=== PATIENT | female | born 1960 | race American Indian/Alaskan Native ===

== ENCOUNTER 2017-09-24 09:43 | Emergency (ER) | payer MEDICARE ==
[2017-09-24] MEDS ORDERED: NACL 0.9% 1000 ML 1,000 ML IV ONE (10:02)
[2017-09-24 10:41] LABS: Basophils % (Auto) 0.6 % (0.0-1.8); Eosinophils # (Auto) 0.1 K/mm3 (0.0-0.4); Eosinophils % (Auto) 2.1 % (0.0-4.3); Hematocrit 44.5 % (30.3-42.9); Hemoglobin 14.8 gm/dl (10.1-14.3); Lymphocytes # (Auto) 1.9 K/mm3 (1.2-5.4); Lymphocytes % (Auto) 40.8 % (13.4-35.0); Mean Corpuscular HGB Conc 33 % (30-34); Mean Corpuscular Hemoglobin 30 pg (28-32); Mean Corpuscular Volume 91 fl (79-97); Monocytes # (Auto) 0.3 K/mm3 (0.0-0.8); Monocytes % (Auto) 6.4 % (0.0-7.3); Platelet Count 289 K/mm3 (140-440); Red Blood Count 4.87 M/mm3 (3.65-5.03); Red Cell Distribution Width 13.5 % (13.2-15.2)
[2017-09-24 10:53] LABS: Alanine Aminotransferase 20 units/L (7-56); Albumin 4.1 g/dL (3.9-5); BUN/Creatinine Ratio 14; Blood Urea Nitrogen 10 mg/dL (7-17); Calcium 9.4 mg/dL (8.4-10.2); Hemolysis Index 31
[2017-09-24] MEDS ORDERED: TORADOL IV ONE (12:03)
[2017-09-24] MEDS ORDERED: ZESTRIL PO ONE (12:03)
[2017-09-24] MEDS ORDERED: NACL 0.9% 500 ML 500 ML IV ONE (12:03)
--- NOTE | 2017-09-24 12:05 | Emergency Department Report ---
ED General Adult HPI - General Chief complaint: Abdominal Pain Stated complaint: PELVIC PAIN/DISCHARGE Time Seen by Provider: 09/24/17 11:48 Source: patient, RN notes reviewed Mode of arrival: Ambulatory Limitations: No Limitations - History of Present Illness Initial comments: This is a 57-year-old female who was not known to this provider previously. She reports that she is not , has not had sex for 2 years, and has a history of diabetes and hypertension, and takes lisinopril, 20 mg twice daily, and reports that she was not taking her medicine this morning, because she was supposed to have an outpatient GI study done for swallowing difficulty. She presents to the ER with a complaint of nontraumatic bilateral lower back pain which radiates around to the lower front, as well as strange vaginal discharge. Her typical vaginal discharge is clear. Today it is brown. It does not burn or itch. He does not smell funny. She denies urinary symptoms. She denies vomiting, and issues with defecation. Pain has been intermittent over the past 2 days, and does not have exacerbating or relieving factors. -: Gradual Location: back Radiation: abdomen Quality: aching Consistency: intermittent Improves with: none Worsens with: none Associated Symptoms: other (please see history of present illness). denies: confusion, chest pain, cough, diaphoresis, fever/chills, headaches, loss of appetite, malaise, nausea/vomiting, rash, seizure, shortness of breath, syncope , weakness - Related Data Previous Rx's Medication Instructions Recorded Last Taken Type Acetaminophen [Tylenol Arthritis] 650 mg PO Q6HR PRN #30 tablet.er 09/24/17 Unknown Rx Ibuprofen [Motrin] 600 mg PO Q8H PRN #30 tablet 09/24/17 Unknown Rx Allergies Allergy/AdvReac Type Severity Reaction Status Date / Time No Known Allergies Allergy Verified 09/24/17 10:00 ED Review of Systems ROS: Stated complaint: PELVIC PAIN/DISCHARGE Other details as noted in HPI Comment: All other systems reviewed and negative ED Past Medical Hx - Past Medical History Hx Hypertension: Yes Hx Diabetes: Yes - Surgical History Hx Cholecystectomy: Yes Additional Surgical History: C/S - Social History Smoking Status: Never Smoker Substance Use Type: None - Medications Home Medications: Home Medications Medication Instructions Recorded Confirmed Last Taken Type Acetaminophen [Tylenol Arthritis] 650 mg PO Q6HR PRN #30 tablet.er 09/24/17 Unknown Rx Ibuprofen [Motrin] 600 mg PO Q8H PRN #30 tablet 09/24/17 Unknown Rx ED Physical Exam - General Limitations: No Limitations General appearance: alert, in no apparent distress - Head Head exam: Present: atraumatic, normocephalic - Eye Eye exam: Present: normal appearance, EOMI - ENT ENT exam: Present: normal exam, normal orophraynx, mucous membranes moist - Neck Neck exam: Present: normal inspection, full ROM. Absent: tenderness, meningismus - Respiratory Respiratory exam: Present: normal lung sounds bilaterally. Absent: respiratory distress - Cardiovascular Cardiovascular Exam: Present: normal rhythm, bradycardia, normal heart sounds. Absent: systolic murmur, diastolic murmur, rubs, gallop - GI/Abdominal GI/Abdominal exam: Present: soft, normal bowel sounds. Absent: distended, tenderness, guarding, rebound, rigid, pulsatile mass - External exam: Present: normal external exam. Absent: lacerations, ecchymosis Speculum exam: Present: normal speculum exam. Absent: cervical discharge, vaginal bleeding Bi-manual exam: Present: normal bi-manual exam, other (chaperoned by nurse Adela Marques). Absent: cervical motion tendernes, adnexal tenderness, adnexal mass - Extremities Exam Extremities exam: Present: normal inspection, full ROM, normal capillary refill , other (2+ pulses noted in the bilateral upper, lower extremities. Compartments soft. No long bony tenderness. The pelvis is stable.). Absent: calf tenderness - Back Exam Back exam: Present: normal inspection, full ROM. Absent: tenderness, CVA tenderness (R), paraspinal tenderness, vertebral tenderness - Neurological Exam Neurological exam: Present: alert, oriented X3, CN II-XII intact, normal gait, other (Extraocular movements intact. Tongue midline. No facial droop. Facial sensation intact to light touch in the V1, V2, V3 distribution bilaterally. 5 and 5 strength in 4 extremities.. Sensation is intact to light touch in 4 extremities.). Absent: motor sensory deficit - Psychiatric Psychiatric exam: Present: normal affect, normal mood - Skin Skin exam: Present: warm, dry, intact, normal color. Absent: rash ED Course Vital Signs 09/24/17 09/24/17 09/24/17 10:00 12:11 12:35 Temperature 98 F Pulse Rate 58 L 75 50 L Respiratory 18 Rate Blood Pressure 224/168 169/79 O2 Sat by Pulse 98 Oximetry 09/24/17 09/24/17 09/24/17 13:01 13:28 14:01 Temperature Pulse Rate 104 H 59 L Respiratory 21 16 18 Rate Blood Pressure 174/83 122/86 O2 Sat by Pulse 99 99 Oximetry - Reevaluation(s) Reevaluation #1: 09/24/17 13:07 Differential diagnosis, including not limited to: Constipation, fibroids, endometriosis, urinary tract infection, appendicitis, gynecologic malignancy hypertension secondary to medication noncompliance Assessment and plan: 57-year-old female with a primary complaint of lower back pain that radiates to the front and vaginal discharge. She is most likely hypertensive because she has not taken her morning blood pressure medication. She does not have a pulsatile abdominal mass, and she denies headache, neck pain , chest pain. Please reference the [employer] clinical policy on hypertension that is not symptomatically. Her laboratory studies thus far are unremarkable. A urinalysis is pending at this time. A CT scan of the abdomen and pelvis is pending at this time. We will treat the patient's pain with nonnarcotic pain medication. We will reassess., Reevaluation #2: 09/24/17 14:45 CT scan of the abdomen and pelvis is negative. Blood pressure is improved. Patient will be discharged at this time. ED Medical Decision Making - Lab Data Result diagrams: 09/24/17 10:17 09/24/17 10:17 Vital Signs 09/24/17 09/24/17 10:00 12:35 Temperature 98 F Pulse Rate 58 L 50 L Respiratory 18 Rate Blood Pressure 224/168 169/79 O2 Sat by Pulse 98 Oximetry Lab Results 09/24/17 09/24/17 Range/Units 10:17 10:17 WBC 4.8 (4.5-11.0) K/mm3 RBC 4.87 (3.65-5.03) M/mm3 Hgb 14.8 H (10.1-14.3) gm/dl Hct 44.5 H (30.3-42.9) % MCV 91 (79-97) fl MCH 30 (28-32) pg MCHC 33 (30-34) % RDW 13.5 (13.2-15.2) % Plt Count 289 (140-440) K/mm3 Lymph % (Auto) 40.8 H (13.4-35.0) % [place] % (Auto) 6.4 (0.0-7.3) % Eos % (Auto) 2.1 (0.0-4.3) % Baso % (Auto) 0.6 (0.0-1.8) % Lymph # 1.9 (1.2-5.4) K/mm3 [place] # 0.3 (0.0-0.8) K/mm3 Eos # 0.1 (0.0-0.4) K/mm3 Baso # 0.0 (0.0-0.1) K/mm3 Seg Neutrophils % 50.1 (40.0-70.0) % Seg Neutrophils # 2.4 (1.8-7.7) K/mm3 Sodium 141 (137-145) mmol/L Potassium 4.0 (3.6-5.0) mmol/L Chloride 102.3 (98-107) mmol/L Carbon Dioxide 24 (22-30) mmol/L Anion Gap 19 mmol/L BUN 10 (7-17) mg/dL Creatinine 0.7 (0.7-1.2) mg/dL Estimated GFR > 60 ml/min BUN/Creatinine Ratio 14 % Glucose 173 H (65-100) mg/dL Calcium 9.4 (8.4-10.2) mg/dL Total Bilirubin 0.30 (0.1-1.2) mg/dL AST 17 (5-40) units/L ALT 20 (7-56) units/L Alkaline Phosphatase 66 (35-129) units/L Total Protein 7.6 (6.3-8.2) g/dL Albumin 4.1 (3.9-5) g/dL Albumin/Globulin Ratio 1.2 % - EKG Data EKG shows normal: axis, intervals, QRS complexes, ST-T waves Rate: bradycardia - EKG Data When compared to previous EKG there are: previous EKG unavailable - Radiology Data Radiology results: report reviewed, image reviewed Critical care attestation.: If time is entered above; I have spent that time in minutes in the direct care of this critically ill patient, excluding procedure time. ED Disposition Clinical Impression: Lower back pain, Elevated blood pressure reading Disposition: DC-01 TO HOME OR SELFCARE Is pt being admited?: No Does the pt Need Aspirin: No Condition: Stable Instructions: Abdominal Pain (ED) Additional Instructions: Do not take metformin for the next 48 hours. Please note that blood pressure was elevated upon arrival. This should be followed up by her primary care doctor within the next 2-3 weeks. Continue your outpatient blood pressure medications, and please be aware that long-term complications of hypertension and elevated blood pressure includes stroke, heart attack, disability, paralysis, loss of quality of life. Cultures were sent today, and results will be available in the next 3-5 days. Please have a primary care doctor or director of capital giving contact the medical records department to obtain culture results. Rest, and avoid heavy lifting and avoid strenuous physical activity. Take pain medications as needed/directed. Follow up with either her primary care doctor or director of capital giving within the next 2 weeks. Return to the ER right away with new pain, worsened pain, migration of pain, projectile vomiting, change of mental status, confusion, inability to tolerate liquid feeds. Referrals: [facility] [Primary Care Provider] - 3-5 Days [facility] [Provider Group] - 3-5 Days [facility] [Provider Group] - 3-5 Days [facility]ERTIFIED [facility]YSIC[facility] [Provider Group] - 3-5 Days
[2017-09-24 13:17] LABS: Bacteria,Urine 3+ /HPF (Negative); Mucus,Urine 1+ /HPF
[2017-09-24 13:37] LABS: Bilirubin,Urine NEG (Negative); Blood,Urine LG (Negative); Color,Urine Yellow (Yellow); Urobilinogen,Urine < 2.0 mg/dL (<2.0)
[2017-09-24 13:38] LABS: Amorphous Crystals,Urine 3+
--- NOTE | 2017-09-24 14:28 | Cat Scan Report ---
CT ABDOMEN PELVIS WITH CONTRAST: HISTORY: Back pain, pelvic pain. COMPARISON: none. TECHNIQUE: Helical CT in 1.25mm intervals following IV contrast. Sagittal and coronal reconstructions. FINDINGS: Lung bases: Normal. Liver: Normal. Biliary system: Cholecystectomy. No biliary dilatation. Pancreas: Normal. Spleen: Normal. Kidneys/ureters/bladder: Normal. Adrenal glands: Normal. Aorta: Normal. Intestines: Normal. Appendix: Normal. Pelvic viscera: Normal. Ascites: None. Adenopathy: None. Musculoskeletal: Mild thoracolumbar spondylosis. No fracture or suspicious bony lesion. IMPRESSION: Unremarkable CT scan of the abdomen and pelvis with contrast.
[2017-09-24 15:05] VITALS: BP 147/70
== END 2017-09-24 15:26 | disposition home or self-care (01) ==
LOC: ED 09:43
DX: M54.5 Low back pain (principal); I10 Essential (primary) hypertension; E11.9 Type 2 diabetes mellitus without complications; Z90.49 Acquired absence of other specified parts of digestive tract
CPT/HCPCS: 36415; 74177; 80053; 81001; 85025; 87086; 87210; 87591; 93005; 93010; 96374; 99284; J1885; J7040; Q9967

== ENCOUNTER 2017-10-15 08:23 | Outpatient (CLI) | payer MEDICARE ==
--- NOTE | 2017-10-15 11:18 | Fluoroscopy Report ---
MODIFIED BARIUM SWALLOW History: dysphagia. Findings: Video radiography was provided by the radiologist for speech therapy to assess the swallowing mechanism. 1 fluoroscopic image was captured. Impression: Successful modified barium swallow.
== END 2017-10-15 08:24 | disposition home or self-care (01) ==
LOC: PT 08:23
PROVIDERS: ATTEND Internal Medicine Gastroenterology
DX: R13.10 Dysphagia, unspecified (principal); I10 Essential (primary) hypertension; Z90.710 Acquired absence of both cervix and uterus
CPT/HCPCS: 74230; 92611; G8996; G8997; G8998